=== PATIENT | male | born 1960 | race Caucasian/White ===

== ENCOUNTER 2017-12-02 11:02 | Emergency (ER) | payer OTHER ==
[2017-12-02 11:17] VITALS: RESP 18; TEMP 98.2
--- NOTE | 2017-12-02 11:30 | ED PDOC ---
Arrival/HPI - General Chief Complaint: Back Pain Time Seen by Provider: 12/02/17 11:04 Historian: Patient, Family - History of Present Illness Narrative History of Present Illness (Text): 12/02/17 11:23 A 57 year old male, whose past medical history includes diabetes, hypertension, CABG, lower back surgery, presents to the emergency department complaining of bilateral foot pain/tingling and lower back pain (chronic). Patient reports pain and tingling feel like a burning sensation. Tingling mainly occurs to bottom of feet. Foot issue has been intermittent for the past few days and since yesterday the symptoms have not gone away. Patient denies any fall, or any other complaints at this time. No PMD Past Medical History - Provider Review Nursing Documentation Reviewed: Yes - Cardiac Hx PA: Yes Hx Hypertension: Yes - Endocrine/Metabolic Hx Diabetes Mellitus Type 2: Yes Other/Comment: Neuropathy - Gastrointestinal Hx Gastroesophageal Reflux: Yes - Psychiatric Hx Substance Use: No - Surgical History Hx Coronary Artery Bypass Graft: Yes (7) Hx Coronary Stent: Yes - Suicidal Assessment Feels Threatened In Home Enviroment: No Family/Social History - Physician Review Nursing Documentation Reviewed: Yes Family/Social History: No Known Family HX Smoking Status: Never Smoked Hx Alcohol Use: No Hx Substance Use: No Allergies/Home Meds Allergies/Adverse Reactions: Allergies No Known Allergies Allergy (Verified 12/02/17 11:17) Home Medications: Home Meds Medication Instructions Recorded Confirmed Atorvastatin [Lipitor] 20 mg PO DAILY 11/03/12 12/02/17 RX: MetFORMIN [glucoPHAGE] 1,000 mg PO BID 11/03/12 12/02/17 Clopidogrel [Plavix] 75 mg PO DAILY 12/02/17 12/02/17 Losartan/Hydrochlorothiazide 1 tab PO DAILY 12/02/17 12/02/17 [Losartan-Hctz 100-25 mg Tab] Nitroglycerin [Nitrostat] 0.4 mg PO DAILY 12/02/17 12/02/17 RX: Aspirin [Ecotrin] 81 mg PO DAILY 12/02/17 12/02/17 RX: Atenolol [Tenormin] 25 mg PO DAILY 12/02/17 12/02/17 RX: Gabapentin [Neurontin] 300 mg PO BID 12/02/17 12/02/17 RX: Pantoprazole Sodium [Protonix] 40 mg PO DAILY 12/02/17 12/02/17 Vorapaxar Sulfate [Zontivity] 2.08 mg PO DAILY 12/02/17 12/02/17 Review of Systems - Physician Review All systems were reviewed & negative as marked: Yes - Review of Systems Musculoskeletal: Back Pain (lower (chronic)), Other (b/l foot pain) Neurological: Other (b/l foot tingling) Physical Exam Vital Signs Reviewed: Yes Vital Signs Temp Pulse Resp BP Pulse Ox 12/02/17 11:13 98.2 F 92 H 18 161/93 H 99 Temperature: Afebrile Blood Pressure: Hypertensive Pulse: Regular Respiratory Rate: Normal Appearance: Positive for: Well-Appearing, Non-Toxic, Comfortable Pain Distress: None Mental Status: Positive for: Alert and Oriented X 3 Finger Stick Blood Glucose: 142 - Systems Exam Head: Present: Atraumatic, Normocephalic Pupils: Present: PERRL Extroacular Muscles: Present: EOMI Conjunctiva: Present: Normal Mouth: Present: Moist Mucous Membranes Neck: Present: Normal Range of Motion Respiratory/Chest: Present: Clear to Auscultation, Good Air Exchange. No: Respiratory Distress, Accessory Muscle Use Cardiovascular: Present: Regular Rate and Rhythm, Normal S1, S2. No: Murmurs Abdomen: No: Tenderness, Distention, Peritoneal Signs Back: Present: Paraspinal Tenderness (lumbar region right-side) Upper Extremity: Present: Normal Inspection. No: Cyanosis, Edema Lower Extremity: Present: Normal Inspection. No: Edema Neurological: Present: GCS=15, CN II-XII Intact, Speech Normal Skin: Present: Warm, Dry, Normal Color. No: Rashes Psychiatric: Present: Alert, Oriented x 3, Normal Insight, Normal Concentration Medical Decision Making ED Course and Treatment: 12/02/17 11:26 Impression: 57 year male with b/l foot pain/tingling and chronic lower back pa in. Plan: -- Labs -- Toradol -- Reassess and disposition Progress Notes: 12/02/17 13:11 suspect diabetic neurotpahy vs other neuropathy. no trauma. h/huey hnp. no t rauma. pain improved. stable for dc. 12/02/17 13:12 neuro intact,. - Scribe Statement The provider has reviewed the documentation as recorded by the Ian Cole Provider Scribe Attestation: All medical record entries made by the Scribe were at my direction and personally dictated by me. I have reviewed the chart and agree that the record accurately reflects my personal performance of the history, physical exam, medical decision making, and the department course for this patient. I have also personally directed, reviewed, and agree with the discharge instructions and disposition. Disposition/Present on Arrival - Present on Arrival Any Indicators Present on Arrival: No History of DVT/PE: Yes History of Uncontrolled Diabetes: No Urinary Catheter: No History of Decub. Ulcer: No History Surgical Site Infection Following: None - Disposition Have Diagnosis and Disposition been Completed?: Yes Diagnosis: Paresthesia, Back pain Disposition: HOME/ ROUTINE Disposition Time: 12:00 Condition: STABLE Discharge Instructions (ExitCare): Low Back Pain (DC), Paresthesias (DC) Additional Instructions: return to er wtih worsening symptoms or concerns. Prescriptions: Cyclobenzaprine [Cyclobenzaprine HCl] 10 mg PO DAILY PRN #10 tab PRN Reason: Muscle Spasm RX: Naproxen 500 mg PO BID PRN #14 tablet PRN Reason: Pain, Mild (1-3) Forms: [employer] (Kinyarwanda)
[2017-12-02 12:03] LABS: BASO # 0.01 K/mm3 (0.0-2.0); BASO % 0.1 % (0.0-3.0); EOS # 0.1 (0.0-0.7); EOS % 1.1 % (1.5-5.0); GRAN # 5.67 (1.4-6.5); GRAN % 64.4 % (50.0-68.0); HEMOGLOBIN 14.3 g/dL (14.0-18.0); LYMPH # 2.6 (1.2-3.4); LYMPH % 29.9 % (22.0-35.0); MEAN CELL VOLUME 86.3 fl (80.0-105.0); MEAN CORPUSCULAR HGB CONC 32.5 g/dl (31.0-37.0); MEAN PLATELET VOLUME 9.1 fl (7.0-11.0); MONO # 0.4 (0.1-0.6); MONO % 4.5 % (1.0-6.0); RBC 5.1 10^6/uL (3.5-6.1); RED CELL DISTRIBUTION WIDTH 13.7 % (11.5-14.5); WHITE BLOOD COUNT 8.8 10^3/uL (4.5-11.0)
[2017-12-02 12:07] LABS: PARTIAL THROMBOPLASTIN TIME 34.3 Seconds (25.1-36.5); PROTHROMBIN TIME 11.5 SECONDS (9.4-12.5)
[2017-12-02 12:31] LABS: ALB/GLOB RATIO 1.3 (1.1-1.8); ALBUMIN 4.2 g/dL (3.0-4.8); ALT/SGPT 38 U/L (7-56); AST/SGOT 24 U/L (17-59); BLOOD UREA NITROGEN 23 mg/dL (7-21); CALCIUM 9.3 mg/dL (8.4-10.5); GFR NON-AFRICAN AMERICAN > 60
[2017-12-02 12:54] VITALS: BP 139/92
[2017-12-02 13:00] VITALS: PULSE 82; O2SAT 98
== END 2017-12-02 13:00 | disposition home or self-care (01) ==
LOC: ED 11:02
DX: R20.2 Paresthesia of skin (principal); M54.5 Low back pain; I10 Essential (primary) hypertension; I25.2 Old myocardial infarction; E11.40 Type 2 diabetes mellitus with diabetic neuropathy, unspecified; Z95.1 Presence of aortocoronary bypass graft
CPT/HCPCS: 80053; 85025; 85610; 85730; 96374; 99283; J1885

== ENCOUNTER 2018-06-14 17:59 | Emergency (ER) | payer OTHER ==
[2018-06-14 18:10] VITALS: RESP 18; TEMP 98.4; BMI 25.8
--- NOTE | 2018-06-14 18:16 | ED PDOC ---
Arrival/HPI - General Historian: Patient - History of Present Illness Narrative History of Present Illness (Text): 06/14/18 18:17 58 y/o male with PMH of constipation, GERD, HTN, CAD (s/p CABG 2010), and DM presents to the ED c/o abdominal pain x 3 days. Pain is constant, epigastric without radiation, worse with eating. Associated nausea, vomiting, and constipation. Last BM this morning, hard brown stool. Emesis is nonbloody, nonbilious, 1-2 times daily, last this morning after eating a chicken sandwich. Denies fever, chills, back pain, neck pain, urinary symptoms, testicular pain/swelling, chest pain, SOB, hematemesis, melena, headache, dizziness, palpitations, or any other associated symptoms. <Clari Branch - Last Filed: 06/15/18 15:11> <Jadon Newton - Last Filed: 06/15/18 15:17> - General Chief Complaint: Abdominal Pain Time Seen by Provider: 06/14/18 18:04 Past Medical History - Provider Review Nursing Documentation Reviewed: Yes - Infectious Disease Hx of Infectious Diseases: None - Cardiac Hx NH: Yes Hx Hypertension: Yes Other/Comment: Open heart surgery - Endocrine/Metabolic Hx Diabetes Mellitus Type 2: Yes Other/Comment: Neuropathy - Gastrointestinal Hx Constipation: Yes Hx Gastroesophageal Reflux: Yes - Psychiatric Hx Substance Use: No - Surgical History Hx Coronary Artery Bypass Graft: Yes (7) Hx Coronary Stent: Yes - Anesthesia Hx Anesthesia: Yes Hx Anesthesia Reactions: No Hx Malignant Hyperthermia: No - Suicidal Assessment Feels Threatened In Home Enviroment: No <Clari Branch - Last Filed: 06/15/18 15:11> Family/Social History - Physician Review Nursing Documentation Reviewed: Yes Family/Social History: No Known Family HX Smoking Status: Never Smoked Hx Alcohol Use: No Hx Substance Use: No <Clari Branch - Last Filed: 06/15/18 15:11> Allergies/Home Meds <Clari Branch - Last Filed: 06/15/18 15:11> <Jadon Newton - Last Filed: 06/15/18 15:17> Allergies/Adverse Reactions: Allergies No Known Allergies Allergy (Verified 06/14/18 18:09) Home Medications: Home Meds Medication Instructions Recorded Confirmed Atorvastatin [Lipitor] 20 mg PO DAILY 11/03/12 12/02/17 MetFORMIN [glucoPHAGE] 1,000 mg PO BID 11/03/12 12/02/17 Aspirin [Ecotrin] 81 mg PO DAILY 12/02/17 12/02/17 Atenolol [Tenormin] 25 mg PO DAILY 12/02/17 12/02/17 Clopidogrel [Plavix] 75 mg PO DAILY 12/02/17 12/02/17 Gabapentin [Neurontin] 300 mg PO BID 12/02/17 12/02/17 Losartan/Hydrochlorothiazide 1 tab PO DAILY 12/02/17 12/02/17 [Losartan-Hctz 100-25 mg Tab] Nitroglycerin [Nitrostat] 0.4 mg PO DAILY 12/02/17 12/02/17 Pantoprazole Sodium [Protonix] 40 mg PO DAILY 12/02/17 12/02/17 Vorapaxar Sulfate [Zontivity] 2.08 mg PO DAILY 12/02/17 12/02/17 Review of Systems - Review of Systems Constitutional: Normal. absent: Fevers Eyes: Normal. absent: Vision Changes ENT: Normal. absent: Sore Throat, Sinus Congestion Respiratory: Normal. absent: SOB, Cough Cardiovascular: Normal. absent: Chest Pain, Palpitations, Syncope Gastrointestinal: Abdominal Pain, Constipation, Nausea, Vomiting. absent: Diarrhea, Hematochezia, Hematemesis Genitourinary Male: Normal. absent: Dysuria, Frequency, Hematuria Musculoskeletal: Normal. absent: Back Pain, Neck Pain Skin: Normal. absent: Rash Neurological: Normal. absent: Headache, Dizziness <Motter,Clari - Last Filed: 06/15/18 15:11> Physical Exam Vital Signs Reviewed: Yes Vital Signs Temp Pulse Resp BP Pulse Ox 06/14/18 18:09 98.4 F 78 18 154/82 H 99 Temperature: Afebrile Blood Pressure: Hypertensive Pulse: Regular Respiratory Rate: Normal Appearance: Positive for: Well-Appearing, Non-Toxic, Comfortable Pain Distress: None Mental Status: Positive for: Alert and Oriented X 3 - Systems Exam Head: Present: Atraumatic, Normocephalic Pupils: Present: PERRL Extroacular Muscles: Present: EOMI Conjunctiva: Present: Normal Mouth: Present: Moist Mucous Membranes Neck: Present: Normal Range of Motion. No: Meningeal Signs Respiratory/Chest: Present: Clear to Auscultation, Good Air Exchange, Other (healed midsternal surgical incision). No: Respiratory Distress, Accessory Muscle Use Cardiovascular: Present: Regular Rate and Rhythm, Normal S1, S2, Peripheal Pulses Present Abdomen: Present: Tenderness (mild epigastric), Normal Bowel Sounds. No: Distention, Peritoneal Signs, Rebound, Guarding Back: Present: Normal Inspection. No: CVA Tenderness, Midline Tenderness, Paraspinal Tenderness Upper Extremity: Present: Normal Inspection, Normal ROM, NORMAL PULSES, Neurovascularly Intact, Capillary Refill < 2s. No: Cyanosis, Edema, Temperature Abnormalties Lower Extremity: Present: Normal Inspection, NORMAL PULSES, Normal ROM, Ne urovascularly Intact, Capillary Refill < 2 s. No: Edema, Temperature Abnormalties Neurological: Present: GCS=15, CN II-XII Intact, Speech Normal, Motor Func Grossly Intact, Normal Sensory Function, Gait Normal Skin: Present: Warm, Dry, Normal Color. No: Rashes Psychiatric: Present: Alert, Oriented x 3, Normal Insight, Normal Concentration, Normal Affect, Normal Mood <Clari Branch - Last Filed: 06/15/18 15:11> Vital Signs Temp Pulse Resp BP Pulse Ox 06/14/18 22:02 70 18 145/76 100 06/14/18 20:03 67 18 157/89 H 100 06/14/18 18:09 98.4 F 78 18 154/82 H 99 <Jadon Newton - Last Filed: 06/15/18 15:17> Medical Decision Making ED Course and Treatment: 06/14/18 18:14 Initial Plan: * Fingerstick * Labs * UA * EKG * CXR * CT Abd/Pelvis with IV contrast * IVF * Pepcid, Zofran, Toradol On initial exam, patient is well appearing in no acute distress with stable vitals. No fever or tachycardia. EKG shows NSR at 79 without acute ischemic change 19:01 Fingerstick 211 19:19 Bloodwork and UA reviewed, mild anemia at 12.8, otherwise unremarkable. No leukocytosis or electrolyte abnormalities. Hemoccult on rectal exam negative. No rectal tenderness; normal tone. Patient reports improvement in pain with medication. 21:[address] shows enteritis without obstruction or diverticulitis. Pt is afebrile with no leukocytosis. Will discharge home and advise PMD and GI followup. Diagnostic testing results and plan of care discussed with patient. Strict instructions given regarding prescription use, importance of followup, and signs /symptoms to return to ER including chest pain, SOB, fever, or any other new/worsening symptoms. Pt verbalized understanding of discussion. Patient is A&Ox3, ambulating with steady gait, with vital signs stable for discharge. Visit translated by patient's daughter with patient's consent. - Lab Interpretations Lab Results: 06/14/18 19:03 06/14/18 19:03 Lab Results 06/14/18 19:03: Sodium 138, Potassium 4.0, Chloride 99, Carbon Dioxide 26, Anion Gap 18, BUN 22 H, Creatinine 1.4, Est GFR ( Amer) > 60, Est GFR (Non-Af Amer) 52, Random Glucose 211 H, Calcium 8.6, Total Bilirubin 0.3, AST 26, ALT 22, Alkaline Phosphatase 69, Troponin I < 0.01, Total Protein 7.2, Albumin 4.0, Globulin 3.2, Albumin/Globulin Ratio 1.2, Lipase 289 06/14/18 19:03: PT 11.1, INR 1.00, APTT 33.0 06/14/18 19:03: WBC 9.2, RBC 4.70, Hgb 12.8 L, Hct 40.7 L, MCV 86.6, MCH 27.2, MCHC 31.4, RDW 14.0, Plt Count 298, MPV 9.2, Neut % (Auto) 58.6, Lymph % (Auto) 34.5, [place] % (Auto) 5.3, Eos % (Auto) 1.5, Baso % (Auto) 0.1, Lymph # (Auto) 3.2, [place] # (Auto) 0.5, Eos # (Auto) 0.1, Baso # (Auto) 0.01, Absolute Neuts (auto) 5.41 06/14/18 18:53: POC Glucose (mg/dL) 211 H 06/14/18 18:28: Urine Color Yellow, Urine Appearance Clear, Urine pH 6.0, Ur Specific [place] 1.025, Urine Protein Trace H, Urine Glucose (UA) Negative, Urine Ketones Negative, Urine Blood Negative, Urine Nitrate Negative, Urine Bilirubin Negative, Urine Urobilinogen 0.2, Ur Leukocyte Esterase Negative, Urine RBC 0 - 2, Urine WBC 0 - 2, Ur Epithelial Cells 0 - 2, Urine Bacteria Rare I have reviewed the lab results: Yes - RAD Interpretation Narrative RAD Interpretations (Text): 06/14/18 20:44 CT Abd/Pelvis with IV contrast: FINDINGS: LUNG BASES: The lung bases appear clear. No pleural effusions are seen. LIVER: Unremarkable. GALLBLADDER AND BILE DUCTS: The gallbladder appears within normal limits. No radioopaque gallstones are seen. No biliary ductal dilatation is evident. PANCREAS: Unremarkable. SPLEEN: Unremarkable. ADRENAL GLANDS: Unremarkable. KIDNEYS, URETERS, AND BLADDER: The kidneys appear within normal limits. There is no hydronephrosis or hydroureter. No urinary calculi are seen. The urinary bladder is underdistended. STOMACH AND BOWEL: A small hiatal hernia is noted. Unremarkable appearance of the stomach. There is mild mucosal wall thickening throughout the small intestinal tract with fluid in the lumen noted compatible with diffuse enteritis. Findings appear slightly more pronounced in the ileal small intestinal tract. Infectious or inflammatory etiologies are thought most likely. No evidence of bowel obstruction. There is very mild diverticulosis coli seen in the lower descending and sigmoid colon. APPENDIX: No evidence of acute appendicitis on CT examination. PERITONEUM: No free fluid. No free air. LYMPH NODES: No lymphadenopathy is evident. REPRODUCTIVE: Unremarkable as visualized. VASCULATURE: No evidence of abdominal aortic aneurysm. Moderate atherosclerotic vascular plaquing is present. BONES: No aggressive appearing osseous lesion. No acute osseous pathology evident. A 1.1 cm sclerotic focus is seen in the lower left innominate likely consistent with a bone island. There is evidence of advanced degenerative disc disease at L5-S1. IMPRESSION: 1. Small hiatal hernia. 2. Evidence of severe panenteritis. 3. Mild diverticulosis coli in the descending and sigmoid regions without diverticulitis. Electronically signed on June 14, 2018 8:21:55 PM EDT by: Papo Varma M.D., M.B.A., Certified By [employer] Trained MRI and CT Specialist Business Management Analyst: Radiologist - EKG Interpretation EKG Interpretation (Text): 06/14/18 18:32 Rate 79; NSR; Normal intervals; No STEMI or other signs of acute ischemia Interpreted by ED Physician: Yes Type: 12 lead EKG Comparison: Com.w/previous EKG (02/20/14) <Clari Branch - Last Filed: 06/15/18 15:11> - Lab Interpretations Lab Results: PT 11.1 SECONDS (9.4-12.5) 06/14/18 19:03 INR 1.00 06/14/18 19:03 APTT 33.0 Seconds (26.9-38.3) 06/14/18 19:03 Troponin I < 0.01 ng/mL 06/14/18 19:03 Total Bilirubin 0.3 mg/dL (0.2-1.3) 06/14/18 19:03 AST 26 U/L (17-59) 06/14/18 19:03 ALT 22 U/L (7-56) 06/14/18 19:03 Alkaline Phosphatase 69 U/L (38-126) 06/14/18 19:03 Total Protein 7.2 g/dL (5.8-8.3) 06/14/18 19:03 Albumin 4.0 g/dL (3.0-4.8) 06/14/18 19:03 Globulin 3.2 gm/dL 06/14/18 19:03 Albumin/Globulin Ratio 1.2 (1.1-1.8) 06/14/18 19:03 Lipase 289 U/L (23-300) 06/14/18 19:03 Urine Color Yellow (YELLOW) 06/14/18 18:28 Urine Appearance Clear (CLEAR) 06/14/18 18:28 Urine pH 6.0 (4.7-8.0) 06/14/18 18:28 Ur Specific [place] 1.025 (1.005-1.035) 06/14/18 18:28 Urine Protein Trace mg/dL (<30 mg/dL) H 06/14/18 18:28 Urine Glucose (UA) Negative mg/dL (NEGATIVE) 06/14/18 18: Urine Ketones Negative mg/dL (NEGATIVE) 06/14/18 18:28 Urine Blood Negative (NEGATIVE) 06/14/18 18:28 Urine Nitrate Negative (NEGATIVE) 06/14/18 18:28 Urine Bilirubin Negative (NEGATIVE) 06/14/18 18:28 Urine Urobilinogen 0.2 E.U./dL (<1 E.U./dL) 06/14/18 18:28 Ur Leukocyte Esterase Negative Angela/uL (NEGATIVE) 06/14/18 18:28 Urine RBC 0 - 2 /hpf (0-2) 06/14/18 18:28 Urine WBC 0 - 2 /hpf (0-6) 06/14/18 18:28 Ur Epithelial Cells 0 - 2 /hpf (0-5) 06/14/18 18:28 Urine Bacteria Rare /hpf (NONE) 06/14/18 18:28 - RAD Interpretation Radiology Orders: 06/14/18 18:28 ABD & PELVIS IV CONTRAST ONLY [CT] Stat CHEST PORTABLE [RAD] Stat - Medication Orders Current Medication Orders: Discontinued Medications Acetaminophen (Tylenol 325mg Tab) 650 mg PO STAT STA Stop: 06/14/18 21:56 Last Admin: 06/14/18 21:55 Dose: 650 mg MAR Pain/Vitals Document 06/14/18 21:55 AD (Rec: 06/14/18 22:01 [place] [facility] [id number] Presence of Pain Presence of Pain Yes Pain Scale Used [facility]: [facility] Used Numeric Famotidine (Pepcid) 20 mg IVP STAT STA Stop: 06/14/18 18:29 Last Admin: 06/14/18 18:50 Dose: 20 mg IVP Administration Document 06/14/18 18:50 BB (Rec: 06/14/18 18:50 [id number] Charges for Administration # of IVP Administrations 1 Sodium Chloride (Sodium Chloride 0.9%) 1,000 mls @ 999 mls/hr IV .Q1H1M STA Stop: 06/14/18 19:29 Last Admin: 06/14/18 18:50 Dose: 999 mls/hr eMAR Start Stop Document 06/14/18 18:50 BB (Rec: 06/14/18 18:50 [id number] Intravenous Solution Start Date 06/14/18 Start Time 18:50 Ketorolac Tromethamine (Toradol) 15 mg IVP STAT STA Stop: 06/14/18 18:29 Last Admin: 06/14/18 18:50 Dose: 15 mg MAR Pain Assessment Document 06/14/18 18:50 BB (Rec: 06/14/18 18:50 [id number] Pain Reassessment Is this a pain reassessment? No Sleep Is patient sleeping during reassessment? No Presence of Pain Presence of Pain Yes Pain Scale Used Protocol: [facility] Pain Scale Used Numeric Location Pain Location Body Site Abdomen Description Description Constant Intensity of Pain at present 9 Pain Behavior Moaning Grasping Site Rubbing Site Restlessness Facial Grimacing IVP Administration Document 06/14/18 18:50 BB (Rec: 06/14/18 18:50 BB [id number]) Charges for Administration # of IVP Administrations 1 Ketorolac Tromethamine (Toradol) 15 mg IVP STAT STA Stop: 06/14/18 20:44 Last Admin: 06/14/18 20:58 Dose: 15 mg MAR Pain Assessment Document 06/14/18 20:58 IT (Rec: 06/14/18 20:58 IT [id number]) Pain Reassessment Is this a pain reassessment? No Sleep Is patient sleeping during reassessment? No Presence of Pain Presence of Pain Yes Pain Scale Used Protocol: [facility] Pain Scale Used Numeric IVP Administration Document 06/14/18 20:58 IT (Rec: 06/14/18 20:58 IT [id number]) Charges for Administration # of IVP Administrations 1 Ondansetron HCl (Zofran Inj) 4 mg IVP STAT STA Stop: 06/14/18 18:29 Last Admin: 06/14/18 18:50 Dose: 4 mg IVP Administration Document 06/14/18 18:50 BB (Rec: 06/14/18 18:50 BB [id number]) Charges for Administration # of IVP Administrations 1 <Jadon Newton - Last Filed: 06/15/18 15:17> - PA / CADDY MASTER / Resident Statement / has reviewed & agrees with the documentation as recorded. <Jadon Newton - Last Filed: 06/15/18 15:17> Disposition/Present on Arrival - Present on Arrival Any Indicators Present on Arrival: No History of DVT/PE: No History of Uncontrolled Diabetes: No Urinary Catheter: No History of Decub. Ulcer: No History Surgical Site Infection Following: None - Disposition Have Diagnosis and Disposition been Completed?: Yes Disposition Time: 21:10 <Clari Branch - Last Filed: 06/15/18 15:11> <Jadon Newton - Last Filed: 06/15/18 15:17> - Disposition Diagnosis: Enteritis Disposition: HOME/ ROUTINE Condition: IMPROVED Discharge Instructions (ExitCare): Viral Gastroenteritis Print Language: TURKISH Additional Instructions: Zofran cada 8 horas segn sea necesario para las nuseas. Pepcid cada 12 horas Tylenol haim sea necesario para el dolor Aumentar los fluidos Dieta blanda, sin lcteos ni comidas picantes. Seguimiento con el mdico GI dentro de 2 flores. Seguimiento con mdico primario en 2 flores. Regrese a la marce de emergencias para cualquier sntoma nuevo / que empeora Prescriptions: Famotidine [Pepcid] 20 mg PO Q12H #14 tab Ondansetron HCl [Zofran] 4 mg PO Q8 PRN #9 tablet PRN Reason: Nausea/Vomiting [place] [facility] [place] - Follow up with primary Hugo Garcia MD [Staff Provider] - Follow up with primary Marti Raymond MD [Medical Doctor] - Follow up with primary Forms: [employer] ([employer]), WORK NOTE
[2018-06-14] MEDS ORDERED: Sodium Chloride 0.9% 1,000 ML IV STA (18:29)
[2018-06-14 19:08] LABS: BASO # 0.01 K/mm3 (0.0-2.0); BASO % 0.1 % (0.0-3.0); EOS # 0.1 (0.0-0.7); EOS % 1.5 % (1.5-5.0); HEMOGLOBIN 12.8 g/dL (14.0-18.0); LYMPH # 3.2 (1.2-3.4); LYMPH % 34.5 % (22.0-35.0); MEAN CELL VOLUME 86.6 fl (80.0-105.0); MEAN CORPUSCULAR HEMOGLOBIN 27.2 pg (25.0-35.0); MEAN CORPUSCULAR HGB CONC 31.4 g/dl (31.0-37.0); MEAN PLATELET VOLUME 9.2 fl (7.0-11.0); MONO # 0.5 (0.1-0.6); MONO % 5.3 % (1.0-6.0); RBC 4.7 10^6/uL (3.5-6.1); WHITE BLOOD COUNT 9.2 10^3/uL (4.5-11.0)
[2018-06-14 19:17] LABS: ALB/GLOB RATIO 1.2 (1.1-1.8); ALT/SGPT 22 U/L (7-56); AST/SGOT 26 U/L (17-59); BLOOD UREA NITROGEN 22 mg/dL (7-21); CALCIUM 8.6 mg/dL (8.4-10.5); GFR NON-AFRICAN AMERICAN 52; LIPASE 289 U/L (23-300)
[2018-06-14 19:19] LABS: PROTHROMBIN TIME 11.1 SECONDS (9.4-12.5)
[2018-06-14] MEDS ORDERED: Iohexol 350 MG/100 ML VIAL ONE (19:22)
[2018-06-14 19:28] LABS: TROPONIN I < 0.01 ng/mL
[2018-06-14 20:03] VITALS: O2SAT 100
[2018-06-14 20:06] LABS: URINE APPEARANCE CLEAR (CLEAR); URINE BILIRUBIN NEGATIVE (NEGATIVE); URINE BLOOD NEGATIVE (NEGATIVE); URINE COLOR YELLOW (YELLOW); URINE GLUCOSE (UA) NEGATIVE (NEGATIVE); URINE LEUKOCYTE ESTERASE NEGATIVE Leu/uL (NEGATIVE); URINE PROTEIN TRACE mg/dL (<30 mg/dL); URINE UROBILINOGEN 0.2 E.U./dL (<1 E.U./dL)
[2018-06-14 20:18] LABS: URINE EPITHELIAL CELLS 0 - 2 /hpf (0-5); URINE RBC 0 - 2 /hpf (0-2); URINE WBC 0 - 2 /hpf (0-6)
[2018-06-14 20:20] LABS: URINE BACTERIA RARE /hpf
[2018-06-14 22:03] VITALS: BP 145/76; PULSE 70
--- NOTE | 2018-06-15 08:40 | CT ---
Date of service: 06/14/2018 PROCEDURE: CT Abdomen and Pelvis with contrast HISTORY: epigastric pain, vomiting, constipation COMPARISON: None available. TECHNIQUE: CT scan of the abdomen and pelvis was performed after administration of intravenous contrast. Oral contrast was not administered. Coronal and sagittal reformatted images were obtained. Contrast dose: 100 mL Omnipaque 350 Radiation dose: Total exam DLP = 547.5 mGy-cm. This CT exam was performed using one or more of the following dose reduction techniques: Automated exposure control, adjustment of the mA and/or kV according to patient size, and/or use of iterative reconstruction technique. FINDINGS: LOWER THORAX: The visualized lungs are clear. LIVER: Mild hepatomegaly and fatty liver. Normal homogeneous enhancement. No gross lesion or ductal dilatation. GALLBLADDER AND BILE DUCTS: Well distended. No calcified gallstones, wall thickening or pericholecystic fluid. PANCREAS: Normal in size with homogeneous enhancement. No gross lesion or ductal dilatation. SPLEEN: Normal in size and appearance. ADRENALS: No discrete nodule. KIDNEYS AND URETERS: Normal in size with homogeneous enhancement. No hydronephrosis. No solid mass. Nonspecific perinephric fat stranding. VASCULATURE: No aortic aneurysm. There are aortic atherosclerotic calcifications present. BOWEL: There are fluid-filled mildly dilated proximal small bowel loops and moderate dilatation of fluid-filled mid and distal small bowel loops with mild mural enhancement. There is left colonic diverticulosis without CT evidence for acute diverticulitis. No bowel obstruction. APPENDIX: Normal appendix. PERITONEUM: No free fluid. No free air. LYMPH NODES: No enlarged lymph nodes. BLADDER: Decompressed. REPRODUCTIVE: The prostate gland is normal in size. BONES: No acute fracture. Severe degenerative disc disease at L5-S1. OTHER FINDINGS: There is a small sliding hiatal hernia. IMPRESSION: 1. Findings may represent nonspecific acute infectious/inflammatory enteritis predominantly involving the mid and distal small bowel loops without evidence for bowel obstruction. 2. Left colonic diverticulosis without CT evidence for acute diverticulitis. A preliminary report was provided by [employer].Diverticulosis without CT evidence for acute diverticulitis.
--- NOTE | 2018-06-15 09:20 | CARD ---
APPROVED REPORT Date of service: 06/14/2018 EKG Measurement Heart [id number] <Conclusion> Normal sinus rhythm with sinus arrhythmia Normal ECG
--- NOTE | 2018-06-15 10:57 | RAD ---
Date of service: 06/14/2018 HISTORY: Abdominal pain COMPARISON: No prior. FINDINGS: LUNGS: The lungs are well inflated and clear. PLEURA: No pleural effusions or pneumothorax. CARDIOVASCULAR: Mild cardiomegaly. Status post median sternotomy. No aortic atherosclerotic calcifications present. OSSEOUS STRUCTURES: Within normal limits for the patient's age. VISUALIZED UPPER ABDOMEN: Normal. OTHER FINDINGS: None. IMPRESSION: No active pulmonary disease.
== END 2018-06-14 22:03 | disposition home or self-care (01) ==
LOC: ED 17:59
DX: K52.9 Noninfective gastroenteritis and colitis, unspecified (principal); I25.10 Atherosclerotic heart disease of native coronary artery without angina pectoris; I10 Essential (primary) hypertension; I25.2 Old myocardial infarction; K21.9 Gastro-esophageal reflux disease without esophagitis; E11.9 Type 2 diabetes mellitus without complications; Z95.1 Presence of aortocoronary bypass graft; Z95.5 Presence of coronary angioplasty implant and graft
CPT/HCPCS: 71045; 74177; 80053; 81001; 82948; 83690; 84484; 85025; 85610; 85730; 93005; 96374; 96375; 96376; 99284; J1885; J2405; J7030; Q9967